=== PATIENT | female | born 1985 | race Caucasian/White ===

== ENCOUNTER 2019-02-04 13:01 | Emergency (ER) | payer OTHER ==
[~2019-02-04] VITALS: Ht 170.2 cm; Wt 105.0 kg
[2019-02-04 13:20] VITALS: BP 118/47
[2019-02-04] MEDS ORDERED: FOLI0.4T2 PO (13:24)
[2019-02-04] MEDS ORDERED: PREN-170 PO (13:24)
[2019-02-04] MEDS ORDERED: NITR-87 GT (13:24)
== END 2019-02-04 16:44 | disposition left against medical advice (07) ==
LOC: ER 13:01
DX: Z53.21 Procedure and treatment not carried out due to patient leaving prior to being seen by health care provider (principal)